=== PATIENT | male | born 1995 | race Caucasian/White ===

== ENCOUNTER 2019-02-10 16:46 | Emergency (ER) | payer BC ==
[~2019-02-10] VITALS: Ht 172.7 cm; Wt 77.3 kg
[2019-02-10 16:53] VITALS: TEMP 98.1
[2019-02-10 18:00] LABS: BASO # 0.1 (0.0-0.2); BASO % 0.8 % (0.0-2.0); EOS # 0.2 (0.0-0.7); EOS % 3.3 % (0-4.0); GRAN # 4.4 (1.4-6.5); GRAN % 65.3 % (42.2-75.2); HEMATOCRIT 42.4 % (42.0-52.0); HEMOGLOBIN 15.3 g/dl (13.5-18.0); LYMPH # 1.5 (1.2-3.4); LYMPH % 23.2 % (20.0-51.0); MEAN CELL VOLUME 87 fl (80.0-100.0); MEAN CORPUSCULAR HEMOGLOBIN 32 pg (27.0-31.0); MEAN CORPUSCULAR HGB CONC 36 g/dl (33.0-37.0); MONO # 0.5 (0.1-0.6); MONO % 7.2 % (1.7-9.3); PLATELET COUNT 260 K/mm3 (130-400); RED BLOOD COUNT 4.85 M/mm3 (4.20-5.60); REDCELL DISTRIBUTION WIDTH-CV 11.2 % (11.5-14.5)
[2019-02-10 18:26] LABS: ALANINE AMINOTRANSFERASE 26 U/L (21-72); ALKALINE PHOSPHATASE 113 U/L (50-136); ANION GAP 12 mmol/L (7-16); AST,SGOT 23 U/L (15-37); BILIRUBIN,TOTAL 0.5 mg/dL (0.0-1.0); BLOOD UREA NITROGEN 15 mg/dL (9-20); CALCIUM 9.9 mg/dL (8.4-10.2); CARBON DIOXIDE 25 mmol/L (22-30); CHLORIDE 104 mmol/L (98-107); CREATININE, serum 0.99 mg/dL (0.66-1.25); GLUCOSE 93 mg/dL (74-106); POTASSIUM 3.6 mmol/L (3.4-5.0); SODIUM 140 mmol/L (137-145); TOTAL PROTEIN 8.2 gm/dL (6.4-8.2)
[2019-02-10 18:27] LABS: C-REACTIVE PROTEIN < 0.5 mg/dL (0.0-0.9)
[2019-02-10 18:33] LABS: TROPONIN-I < 0.012 ng/mL (0.000-0.035)
[2019-02-10 19:12] VITALS: BP 124/72; PULSE 66
== END 2019-02-10 19:15 | disposition home or self-care (01) ==
LOC: COL.ER 16:46
PROVIDERS: Physician Assistant
DX: R07.89 Other chest pain (principal); G57.13 Meralgia paresthetica, bilateral lower limbs

== ENCOUNTER → 2019-03-04 | Outpatient (CLI) | payer BC | LOC: COL.RAD 07:57 | DX: R10.9 Unspecified abdominal pain (principal) ==

== ENCOUNTER → 2019-03-09 | Outpatient (CLI) | payer BC | LOC: COL.RAD 09:48 | DX: R10.9 Unspecified abdominal pain (principal) | CPT/HCPCS: A9537 ==